=== PATIENT | female | born 1980 | race Hispanic/Latino ===

== ENCOUNTER 2024-12-08 12:11 | Emergency (ER) | payer OTHER ==
[~2024-12-08] VITALS: Ht 162.6 cm; Wt 78.2 kg
[2024-12-08] MEDS ORDERED: WELLBUTRIN XL300 MG PO (12:55)
[2024-12-08] MEDS ORDERED: DULOXETINE HCL60 MG (12:55)
[2024-12-08] MEDS: SODIUM CHLORIDE 0.9% 1000ML 1,000 ML IV ONE (13:28)
[2024-12-08] MEDS: ONDANSETRON HCL INJ 2MG/ML 2ML 2 MG/ML VIAL IV STA (13:29)
[2024-12-08] MEDS: KETOROLAC TROMETHAMINE 30 MG/ML VIAL IV STA (13:29)
[2024-12-08] MEDS ORDERED: FLOMAX0.4 MG PO (14:15)
[2024-12-08] MEDS ORDERED: ONDANSETRON ODT4 MG PO (14:16)
[2024-12-08 14:19] VITALS: PULSE 83; RESP 16; TEMP 98.3; O2SAT 100
== END 2024-12-08 14:28 | disposition home or self-care (01) ==
LOC: FSED 12:17
DX: R10.31 Right lower quadrant pain (principal); N13.2 Hydronephrosis with renal and ureteral calculous obstruction; R11.0 Nausea; F41.9 Anxiety disorder, unspecified; F32.A Depression, unspecified
CPT/HCPCS: 74176; 80053; 81003; 81025; 85025; 96374; 96375; 99284; J1885; J2405; J7030